=== PATIENT | male | born 1955 | race Caucasian/White ===

== ENCOUNTER 2019-03-01 08:59 | Inpatient (IN) | payer MEDICAID, OTHER ==
[2019-03-01] VITALS (44 sets, daily range): BP systolic 62–150; BP diastolic 30–96
[~2019-03-01] VITALS: Ht 175.3 cm; Wt 99.5 kg
[2019-03-01 09:36] LABS: BE(vivo) -6.4 mmol/L (-2 to +3); HCO3 21.7 mmol/L (22.0-26.0); PCO2 54.6 mmHg (35.0-45.0); PO2 68.8 mmHg (80.0-100.0); pH 7.217 (7.360-7.450); sO2 89.9 % (92.0-98.0)
[2019-03-01] MEDS ORDERED: PEPCID20 MG PER TUBE (09:43)
[2019-03-01] MEDS ORDERED: CHILDREN'S80 MG/2.5 PER TUBE (09:47)
[2019-03-01] MEDS ORDERED: MILK OF MA2400 MG/11 PO (09:49)
[2019-03-01] MEDS ORDERED: ROBITUSSIN100 MG/53 PER TUBE (09:50)
[2019-03-01] MEDS ORDERED: BACLOFEN 10MG T10 MG PER TUBE (09:50)
[2019-03-01 11:26] LABS: HEMATOCRIT 34.4 % (42.0-52.0); HEMOGLOBIN 10.3 gm/dL (14.0-18.0); MCH 24.9 pg (26.0-34.0); MCV 83.1 fL (80.0-100.0); PLATELET COUNT 180 thou/uL (150-400); RBC 4.14 mil/uL (4.50-6.00); RDW 16.9 % (10.5-14.5)
[2019-03-01 11:30] LABS: CALCIUM 8.9 mg/dL (8.5-10.1); CREATININE 2.8 mg/dL (0.7-1.3); POTASSIUM 5.9 mmol/L (3.5-5.1); WBC 51.6 thou/uL (4.0-11.0)
[2019-03-01 11:31] LABS: URINE BILIRUBIN NEGATIVE (Negative); URINE BLOOD 3+ (Negative); URINE CLARITY HAZY; URINE COLOR YELLOW; URINE GLUCOSE-RANDOM* NEGATIVE (Negative); URINE KETONES NEGATIVE (Negative); URINE LEUKOCYTES-REFLEX 3+ (Negative); URINE NITRITE-REFLEX NEGATIVE (Negative); URINE PROTEIN (DIPSTICK) 3+ (Negative); URINE UROBILINOGEN 0.2 E.U./dl (0.2-1.0)
[2019-03-01 11:35] LABS: APTT 43.4 Seconds (24.5-32.8); INR 1.3
[2019-03-01 11:41] LABS: BACTERIA-REFLEX None Seen /HPF (None Seen); CASTS None Seen /LPF (None Seen); CRYSTALS None Seen /LPF (None Seen); SQUAMOUS None Seen /LPF (0-3); TRANSITIONAL EPITHEL CELL 0-3 Few /LPF (None Seen); URINE WBC-REFLEX 6-15 Few /HPF (0-5)
[2019-03-01 11:41] LABS: ALBUMIN 1.9 g/dL (3.4-5.0); MAGNESIUM 2.7 mg/dL (1.8-2.4); TOTAL BILIRUBIN 0.5 mg/dL (<0.1-1.0); TROPONIN-I 0.15 ng/mL (<0.06)
[2019-03-01 11:59] LABS: ABSOLUTE NEUTROPHILS 44.4 thou/uL (1.4-8.2); ATYPICAL LYMPHS 4 %; METAMYELOCYTES 3 %; MYELOCYTES 1 %
[2019-03-01 12:00] LABS: ANISOCYTOSIS 1+; LARGE PLATELETS SEVERAL; TOXIC GRANULATION 1+
[2019-03-01 12:01] LABS: MICROCYTES 1+; POLYCHROMASIA 1+
--- NOTE | 2019-03-01 12:11 | NUR ---
FIRST REPORT CALLED AT THIS TIME; WAS TOLD THAT RN HAD NOT YET BEEN INFORMED THEY WERE RECEIVING A PT AND THAT RN WOULD CALL BACK IN 5 MINS
--- NOTE | 2019-03-01 12:25 | NUR ---
ATTEMPTED TO CALL PT'S , NO RESPONSE. [employer] NOT ACCEPTING MESSAGES AT THIS TIME.
[2019-03-01 14:33] LABS: HEMATOCRIT 32.5 % (42.0-52.0); MCH 25.5 pg (26.0-34.0); MCHC 30.7 g/dL (28.0-37.0); MCV 83.1 fL (80.0-100.0); RBC 3.92 mil/uL (4.50-6.00); RDW 17.3 % (10.5-14.5)
[2019-03-01 14:39] LABS: WBC 60.9 thou/uL (4.0-11.0)
--- NOTE | 2019-03-01 16:30 | NUR ---
PATIENT ARRIVED IN ICU FROM E.D THIS AFTERNOON, ON THE VENT PER TRACH, NON VERBAL AND NON AMBULATORY. HYPOTENSIVE AND ON LEVO GTT, FEBRILE AND LOW URINE OUTPUT NOTED. PEG TUBE AND COLOSTOMY WITH LIQUID STOOL NOTED AND SAMPLE SENT TO LAB FOR C-DIFF TESTING. CONTINUES TO BE HYPOTENSIVE AND NOW IS ON LEVO, VASO, AND ARCHIE GTTs FOR BP SUPPORT. DR. LAL IN TO SEE PATIENT AND IS MANAGING ANTIBIOTICS. NO BELONGINS WITH PATIENT AND PATIENT'S SPOUSE UPDATED ONTHE PHONE. WILL CONTINUE TO MONITOR CLOSELY.
[2019-03-01 17:51] LABS: BE(vivo) -7.5 mmol/L (-2 to +3); HCO3 21.1 mmol/L (22.0-26.0); PCO2 57.3 mmHg (35.0-45.0); PO2 80.8 mmHg (80.0-100.0); sO2 92.8 % (92.0-98.0)
[2019-03-01 17:52] LABS: pH 7.184 (7.360-7.450)
[2019-03-01 18:00] LABS: CREATININE 2.9 mg/dL (0.7-1.3)
[2019-03-01 18:05] LABS: POTASSIUM 6.3 mmol/L (3.5-5.1)
[2019-03-01 20:31] LABS: BE(vivo) -7.2 mmol/L (-2 to +3); HCO3 22.5 mmol/L (22.0-26.0); PCO2 66.4 mmHg (35.0-45.0); pH 7.147 (7.360-7.450); sO2 48.4 % (92.0-98.0)
--- NOTE | 2019-03-01 20:34 | NUR ---
[id number] JACC PLACED LT IJ. PLEASE SEE INSERTION NOTE FOR DETAILS
[2019-03-01 20:52] LABS: BE(vivo) -7.2 mmol/L (-2 to +3); HCO3 21.1 mmol/L (22.0-26.0); PCO2 55.6 mmHg (35.0-45.0); PO2 82.8 mmHg (80.0-100.0); sO2 93.5 % (92.0-98.0)
[2019-03-01 20:53] LABS: pH 7.197 (7.360-7.450)
[2019-03-01 22:33] LABS: CALCIUM 7.5 mg/dL (8.5-10.1); CREATININE 2.8 mg/dL (0.7-1.3)
[2019-03-01 22:36] LABS: POTASSIUM 5.8 mmol/L (3.5-5.1)
[2019-03-02] VITALS (87 sets, daily range): BP systolic 80–129; BP diastolic 44–111
[2019-03-02 00:06] LABS: BE(vivo) -5.7 mmol/L (-2 to +3); HCO3 21.3 mmol/L (22.0-26.0); PCO2 47.7 mmHg (35.0-45.0); PO2 85.1 mmHg (80.0-100.0)
[2019-03-02 00:07] LABS: pH 7.267 (7.360-7.450)
[2019-03-02 05:17] LABS: HEMOGLOBIN 10.9 gm/dL (14.0-18.0); MCH 25.3 pg (26.0-34.0); MCV 81.5 fL (80.0-100.0); PLATELET COUNT 188 thou/uL (150-400); RDW 17.2 % (10.5-14.5)
[2019-03-02 05:28] LABS: WBC 81.1 thou/uL (4.0-11.0)
[2019-03-02 05:31] LABS: ALBUMIN 1.8 g/dL (3.4-5.0); CALCIUM 7.5 mg/dL (8.5-10.1); CREATININE 2.8 mg/dL (0.7-1.3); TOTAL BILIRUBIN 0.8 mg/dL (<0.1-1.0); TOTAL PROTEIN 6.4 g/dL (6.4-8.2)
[2019-03-02 05:34] LABS: POTASSIUM 5.5 mmol/L (3.5-5.1)
[2019-03-02 05:35] LABS: BE(vivo) -4.2 mmol/L (-2 to +3); HCO3 22.6 mmol/L (22.0-26.0); PCO2 48.6 mmHg (35.0-45.0); PO2 96.6 mmHg (80.0-100.0); sO2 96.5 % (92.0-98.0)
[2019-03-02 05:37] LABS: pH 7.286 (7.360-7.450)
[2019-03-02 06:39] LABS: ABSOLUTE NEUTROPHILS 74.6 thou/uL (1.4-8.2)
[2019-03-02 06:42] LABS: PLATELET ESTIMATE NORMAL
[2019-03-02 06:43] LABS: ANISOCYTOSIS 1+; POIKILOCYTOSIS 1+; POLYCHROMASIA 1+
--- NOTE | 2019-03-02 07:51 | EKG ---
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 : 1955 Requested By: Luis Holden Order Number: [id number] MD: Kd Portillo Measurements Intervals [place] Rate: 106 P: 55 PA: 174 QRS: 12 QRSD: 98 T: 51 QT: 307 QTc: 408 Interpretive Statements Sinus tachycardia RSR' in V1 or V2, right VCD or RVH Borderline ST elevation, lateral leads No previous ECG available for comparison Electronically Signed On 03-02-2019 7:51:32 CDT by Kd Portillo [email or web address] ��������������������������������������������� <ELECTRONICALLY SIGNED> ���������������������������������������� By: Kd Portillo MD ��������������������������������������������� 03/02/19 0751 1 1 Kd Portillo MD /ARIELA
--- NOTE | 2019-03-02 10:27 | NUR ---
WOUND CONSULT; INITAL ASSESSMENT OF THE RIGHT BUTTOCKS AND SACRUM; ERYTHEMA, SMALL AMOUT OF SEROSANGINOUS DRAINAGE. FRICTION IS LIKLY VS PRESSURE LINEAR WOUNDS ARE SEEN. SOME FECAL CONTAMINATION IS SEEN. RECOMMEDATIONS; 1-BARRIER CREAM AND A SACRAL FOAM DAILY/PRN RN PRESENT
--- NOTE | 2019-03-02 10:34 | H ---
[facility] [place] [address] HISTORY AND PHYSICAL Name: MERVIN MADDOX Room #: 236-P [facility] IN M.R.#: [id number] Admission: 03/01/19 ������������������ Attend Phys: Mervin Bee MD Discharge: ������������������ Date of : 57 Report #: [id number] THIS REPORT FOR: //name// CC: Joesph Bee DATE OF SERVICE: 03/01/2019 CHIEF COMPLAINT: Low oxygen saturation. HISTORY OF PRESENT ILLNESS: The patient is a 63-year-old gentleman from [facility], sent to the Emergency Room with low oxygen saturations and report of fever. He has a history of quadriplegia from an unknown injury or illness in the past, and as a result, he has chronic respiratory failure, which is tracheostomy and ventilator dependent. He lives at the ventilator unit, and today, the staff noted that he had low oxygen saturations in the 70s. He was sent en route via EMS, and during that time, his colostomy bag apparently filled with liquid and ruptured and had to be reapplied, apparently has been having a lot of gas and liquid brown output through the colostomy. Today, he has been worked up and diagnosed for sepsis in the Emergency Room. He is unable to provide any details of his history. PAST MEDICAL HISTORY: As mentioned, quadriplegia, chronic respiratory failure, ventilator and tracheostomy dependent, PEG tube, Philippe catheter, colostomy. He has contractures of the arms and hands. PAST SURGICAL HISTORY: Unknown. FAMILY HISTORY: Unknown. SOCIAL HISTORY: Unknown. ALLERGIES: No known drug allergies. MEDICATIONS: Pepcid, Tylenol, baclofen, Robitussin. REVIEW OF SYSTEMS: He is unable to give review. OBJECTIVE: VITAL SIGNS: Temperature 37.6, pulse 110, respirations 29, blood pressure 62/34, ranging up to 150/96. O2 sat 95% on the ventilator. GENERAL: He is not alert. Clinically, appears ill. HEAD AND NECK:. Trach in place. Dry oral secretions, mucus discharge from his left eye. HEART: Tachycardic, regular rhythm. LUNGS: Clear anteriorly. [facility] [address] [place] [address] HISTORY AND PHYSICAL Name: MERVIN MADDOX Room #: 236-P [facility] IN ..#: [id number] Admission: 03/01/19 ������������������ Attend Phys: Mervin Bee MD Discharge: ������������������ Date of : 57 Report #: [id number] ABDOMEN: Soft. Hyperactive bowel sounds, colostomy in the mid abdomen with copious brown liquid output. EXTREMITIES: No edema. NEUROLOGIC: He is not alert or communicative and has contractures of the arms. LABORATORY AND X-RAY DATA: Reviewed. ASSESSMENT: 1. Sepsis, severe. 2. Acute on chronic hypoxic hypercapnic respiratory failure. 3. Lactic acidosis due to #1. 4. Chronic ventilator dependence. 5. Tracheostomy dependence. 6. Colostomy in place. 7. Anemia of chronic disease. 8. Acute kidney injury due to the above. 9. Transaminitis. 10. Severe protein-calorie malnutrition, albumin 1.9. PLAN: Full workup and treatment for sepsis will be entertained as symptoms causing his metabolic issues. Certainly, urinary, pulmonary or GI source to consider, but elevated white count would be concerning for an abdominal source including C. diff. I do not know the history of his prior bowel surgery, but this is being reported as a colostomy. He may need empiric treatment there until we have more information. ID and Pulmonary will be involved, and I understand from ER that full code status will be continued. ��������������������������������������������� <ELECTRONICALLY SIGNED> ���������������������������������������� By: Mervin Bee MD ��������������������������������������������� 03/02/19 1034 1304 1319 Mervin Bee MD /nt
--- NOTE | 2019-03-02 12:02 | HC ---
[facility] [place] [address] CONSULTATION Name: OLGAEVIEREBECCA Hercules Room #: 236-P [facility] IN M.R.#: [id number] Admission: 03/01/19 ������������������ Attend Phys: Rebecca Bee MD Discharge: ������������������ Date of : 57 Report #: [id number] THIS REPORT FOR: //name// CC: Joesph Bee PRIMARY CARE PHYSICIAN: Rebecca Bee M.D. REASON FOR REFERRAL: Acute hypoxic respiratory failure. HISTORY OF PRESENT ILLNESS: The patient is a 63-year-old white male who was brought to the Emergency Room for hypoxia. A Pulmonary consultation was requested. The patient is from a chronic facility at [facility]. According to the records, he has a history of multiple scleroses with functional quadriplegia. The patient is chronically on a ventilator. The patient was in his usual state of health until today. The patient was found to be hypoxic. In the ER, the patient's vital signs were stable except for hypoxia. He was placed on high FiO2. He was found to be hypoxic few hours into presentation in the Emergency Room. He is currently on vasopressors, volume resuscitation. History is limited given the patient is quite ill and he does not verbalize. The patient has a who desires aggressive medical intervention. PAST MEDICAL HISTORY: Incomplete. There is a questionable long history of multiple scleroses, resulting in functional quadriplegia, chronic respiratory failure, on ventilator, tracheostomy, PEG tube, colostomy. PAST SURGICAL HISTORY: Again, incomplete. ALLERGIES: Unknown. CURRENT MEDICATIONS: From the facility include Pepcid, milk of magnesia, baclofen, Robitussin. FAMILY HISTORY: Unknown. SOCIAL HISTORY: Unknown other than patient has a who desires a full code blue. REVIEW OF SYSTEMS: Deferred as the patient is quite ill and unable to answer questions. PHYSICAL EXAMINATION: [facility] [address] [place] [address] CONSULTATION Name: OLGAEVIEREBECCA Hercules Room #: 236-P [facility] IN [facility]#: [id number] Admission: 03/01/19 ������������������ Attend Phys: Rebecca Bee MD Discharge: ������������������ Date of : 57 Report #: [id number] GENERAL: He is arousable, but not coherent, appears semi-obtunded. VITAL SIGNS: Temperature maximum 100.8 degrees Fahrenheit, pulse is 107, respiratory rate is 30, blood pressure is 80/35 mmHg and saturation 98%. Blood pressure had been on admission 192/142 and blood pressure has been as low as 45 mmHg systolic. HEENT: Normocephalic and atraumatic. NECK: Status post tracheostomy. CHEST: Breath sounds are fair. Coarse breath sounds in the bases. No obvious wheezes. CARDIOVASCULAR: No obvious murmurs or gallop. Pulses are 2+/4+ bilaterally. ABDOMEN: Soft. No masses felt. Colostomy is noted in the left quadrant. GENITOURINARY: Deferred. RECTAL: Deferred. EXTREMITIES: No cyanosis or clubbing. NEUROLOGICAL: The patient has contractures with muscle atrophy. RADIOLOGICAL DATA: Portable chest x-ray shows small lung volumes, elevated right hemidiaphragm to the mid hemithorax area, there is a probable left lower lobe atelectasis. Tracheostomy is in the midline in appropriate position. EKG shows sinus tachycardia with borderline ST elevation. Doppler ultrasound of the lower extremity venous was negative for DVT. The study was technically difficult. LABORATORY DATA: Influenza A and B swab is negative. Lactic acid level is 4.1. Lipase was 66. Sodium 131, potassium 5.9, chloride 97, CO2 25, BUN 62 and creatinine is 2.8. Liver enzymes are markedly elevated. WBC 51,600 with severe bandemia. Hemoglobin is 10.3 and platelets are normal. Arterial blood gas revealed pH 7.21, pCO2 of 54 and pO2 of 68 on FiO2 of 50%. IMPRESSION: 1. Acute hypercapnic hypoxic respiratory failure in this 63-year-old white male. He has functional quadriplegia due to presumed multiple scleroses. Chest x-ray grossly unremarkable. He has profound leukocytosis with bandemia. Has low grade fever. Suspect severe sepsis as a cause for hypoxia, possible pneumonia. Pulmonary embolus is felt to be less likely though cannot absolutely rule out. 2. Profound hypotension. Suspect sepsis, septic shock. As mentioned above, pulmonary embolus is felt to be less likely. Neurogenic dysfunction is likely contributing. 3. Functional quadriplegia, history is incomplete. There is a history to suggest multiple scleroses versus possible injury. 4. Profound leukocytosis, leukemoid along with probable infectious process. Source includes pulmonary, intra-abdominal including Clostridium difficile colitis. 5. Elevated liver enzymes, due to shock liver. 6. Elevated creatinine, suspect acute tubular necrosis, acute kidney injury, [address] [address] CONSULTATION Name: REBECCA MADDOX Room #: 236-P ADM IN M.R.#: [id number] Admission: 03/01/19 ������������������ Attend Phys: Rebecca Bee MD Discharge: ������������������ Date of : 57 Report #: [id number] question chronic kidney disease. 7. Hypokalemia, hyponatremia. 8. Profound protein-calorie malnutrition with albumin of 1.9. RECOMMENDATIONS: We will continue mechanical ventilation, wean O2 for saturation 90%, DVT prophylaxis, sepsis protocol with vasopressors, IV fluids, broad-spectrum antibiotics. Antibiotics per ID. Monitor urine output closely. Monitor hyperkalemia. Overall look appears to be poor given severe comorbid condition including progressive debility and weakness leading to functional quadriplegia. DVT and GI prophylaxis is indicated. Thank you for this consultation. ��������������������������������������������� <ELECTRONICALLY SIGNED> ���������������������������������������� By: Robert Horne MD ��������������������������������������������� 03/02/19 1202 1656 0426 Robert Horne MD /nt
--- NOTE | 2019-03-02 15:10 | 2DMMODE ---
[facility] [address] [place] [address] 2 D/M-MODE ECHOCARDIOGRAM Name: REBECCA MADDOX Room #: 236-P [facility] IN ..#: [id number] ������������� Admission: 03/01/19 ������������� Attend Phys: Andrew Powell Discharge: ��� ������������� ��� Date of : 57 Date of Service: 03/02/19 1509 �� Report #: [id number] �������� ��������������������������������������������[id number] THIS REPORT FOR: //name// APPROVED REPORT Study performed: 03/02/2019 14:19:50 EXAM: Comprehensive 2D, Doppler, and color-flow Echocardiogram Patient Location: Bedside Room #: [facility] Status: routine BSA: 2.17 HR: 115 bpm BP: 105/55 mmHg Rhythm: Tachycardia Other Information Study Quality: Adequate Technically limited study due to inability to position patient. Indications Septic Shock Respiratory Failure Pt. on ventilator 2D Dimensions IVSd: 11.87 (7-11mm) LVOT Diam: 20.00 (18-24mm) LVDd: 44.61 mm PWd: 12.20 (7-11mm) Ascending Ao: 33.92 (22-36mm) LVDs: 32.24 (25-40mm) Aortic Root: 33.07 mm LV Single Plane 4CH: 45.13 % LV Single Plane 2CH: 44.95 % Aortic Valve AoV Peak Adan.: 1.45 m/s AO Peak Gr.: 8.36 mmHg LVOT Max P.06 mmHg LVOT Max V: 0.87 m/s JULITA Vmax: 1.88 cm2 Pulmonary Valve PV Peak Adan.: 1.28 m/s PV Peak Gr.: 6.51 mmHg Left Ventricle [facility] [address] [place] [address] 2 D/M-MODE ECHOCARDIOGRAM Name: REBECCA MADDOX Room #: 236-P ADM IN .R.#: [id number] ������������� Admission: 03/01/19 ������������� Attend Phys: Andrew Powell Discharge: ��� ������������� ��� Date of : 57 Date of Service: 03/02/19 1509 �� Report #: [id number] �������� ��������������������������������������������[id number] The left ventricle is normal size. There is normal LV segmental wall motion. Mild concentric left ventricular hypertrophy. Left ventricular systolic function is normal. The left ventricular ejection fraction is within the normal range. LVEF is 50%. This study is not technically sufficient to allow evaluation of the LV diastolic function. Right Ventricle The right ventricle is normal size. The right ventricular systolic function is normal. Atria The left atrium size is normal. The right atrium size is normal. Aortic Valve The aortic valve is mildly calcified. No aortic regurgitation is present. There is no aortic valvular stenosis. Mitral Valve The mitral valve is normal in structure. There is no mitral valve regurgitation noted. No evidence of mitral valve stenosis. Tricuspid Valve The tricuspid valve is normal in structure. Trace tricuspid regurgitation. Unable to assess PA pressure. Pulmonic Valve The pulmonary valve is normal in structure. Trace pulmonic regurgitation. Great Vessels The aortic root is normal in size. IVC is not visualized. Pericardium There is no pericardial effusion. Pleural effusion is present. <Conclusion> Left ventricular systolic function is normal. There is normal LV segmental wall motion. LVEF is 50-55%. The aortic valve is mildly calcified. No aortic regurgitation or stenosis The mitral valve is normal in structure. No mitral valve [facility] [place] [address] 2 D/M-MODE ECHOCARDIOGRAM Name: REBECCA MADDOX Room #: 236-P [facility] IN ..#: [id number] ������������� Admission: 03/01/19 ������������� Attend Phys: Andrew Powell Discharge: ��� ������������� ��� Date of : 57 Date of Service: 03/02/19 1509 �� Report #: [id number] �������� ��������������������������������������������[id number] regurgitation. Pulmonary artery systolic pressure could not be reliably ascertained. There is no pericardial effusion. ��������������������������������������������� <ELECTRONICALLY SIGNED> ���������������������������������������� By: Salazar Roth MD, FACC ��������������������������������������������� 03/02/19 1509 150 150 Salazar Roth MD, FACC /INF
--- NOTE | 2019-03-02 15:38 | NUR ---
CM ASSESSMENT: CASE OPENED FOR DC PLANNING. CLINICAL INFO REVIEWED. PT ADMITS THRU ER FROM [facility] VENT [facility]. CRITICALLY ILL WITH HIGH O2 NEEDS ON VENT, REQUIRING PRESSURES FOR BP SUPPORT. SPOKE WITH SPOUSE SPENCER BY PHONE. PT WITH HX OF MS, LAST AT HOME ABOUT A YEAR AGO. WAS IN LTC AT [facility] WITH TRACH AND BREATHING ON OWN. HOSPITALIZATION AT [facility] AND LTAC STAY AT [facility] AND AT ONE TIME WAS ABLE TO BREATHE ON OWN IN DAY AND VENT AT NIGHT. ADMIT TO [facility] OCTOBER 2018 NOT [facility] ANYMORE. SPOSUE INDICATES WANTS PT TO REUTRN TO [facility] WHEN MEDICALLY STABLE. SPOUSE INDICATES DR. ACOSTA CALLED HER THIS AM TO DISCUSS CONDITION AND GOALS OF CARE. PT MADE DNR AFTER SPEAKING WITH DR. ACOSTA, BUT SPOUSE MAINTAINS WANTS AGGRESSIVE TREATMENT TO CONTINUE. SPOUSE INDICATES AT BASELINE PT ABLE IS ALERT AND ABLE TO MOUTH WORDS TO COMMUNICATE. DEPENDENT FOR ADLS.
[2019-03-02 17:25] LABS: CALCIUM 7.3 mg/dL (8.5-10.1); CREATININE 2.6 mg/dL (0.7-1.3)
[2019-03-02 17:26] LABS: POTASSIUM 4.4 mmol/L (3.5-5.1)
--- NOTE | 2019-03-02 18:31 | NUR ---
ASSUMED CARE THIS AM, PATIENT WITH EYES OPEN BUT DOES NOT RESPOND TO VERBAL STIMULUS. STATES THAT PATIENT IS NOT VERBAL BUT CAN MOUTH WORDS AND ANSWER YES/NO QUESTIONS EASILY. DOES NOT FOLLOW COMMANDS OR RESPOND TO YES/NO QUESTIONS. UNABLE TO ASSESS PAIN BUT DOES NOT APPEAR TO BE UNCOMFORTABLE. BLE WITH CYANOTIC TOES AND COOL TO TOUCH. ONLY ABLE TO DOPPLER THE L DORSAL PEDIS PULSE. PEG TUBE CLAMPED. COLOSTOMY WITH BROWN YELLOW LIQUID STOOL NOTED. ST ON MONITOR AND BLOOD PRESSURE SUPPORTED WITH LEVOPHED AND ARCHIE AND VASOPRESSIN. FULL CODE. 0930: SPOKE WITH AND UPDATED ON STATUS. 1330: ATTACHED PEG TUBE TO LIS AND 500 CC OF YELLOW/BROWN LIQUID NOTED. WILL CONTINUE ON INTERMITTENT SUCTION. DR. SCHMITZ NOTIFIED. 1523: TEMP 102.5 DR. SCHMITZ NOTIFIED AND ORDER FOR TYLENOL SUPP RECIEVED. 1730: EKG ORDERED AND AFIB ON MONITOR AT RATE OF 145. DR. MARCELO NOTIFIED AND CARDIOLOGY CONSULTED. 1830: SPOKE WITH DR. RICHARDSON AND NEW ORDERS RECIEVED FOR AMIODARONE AND CARDIZEM.
[2019-03-03] VITALS (80 sets, daily range): BP systolic 62–127; BP diastolic 34–92
--- NOTE | 2019-03-03 00:38 | NUR ---
ASSUMED CARE OF PT AT 1900. PT STARTED ON AMIO BOLUS AND GTT BY AM RN FOR A FIB WITH RVR. PT CONVERTED TO SINUS AT 1912 SHORTLY AFTER AMIO BOLUS INFUSION STARTED. FAMILY UPDATED AT BEDSIDE AT 2229. QUESTIONS ANSWERED BY RN. STATED THAT PT HAS A PRIOR HX OF A FIB AND IS ON AMIODARONE FOR IT. AT 2258 PT CONVERTED BACK TO A FIB. DR RICHARDSON WAS CONTACTED AND UPDATED ON PT STATUS. ORDER CLARIFICATION REGARDING POSSIBLE CARDIZEM GTT WAS GIVEN BY DR RICHARDSON. ORDER FOR ANOTHER AMIODARONE BOLUS GIVEN. WILL CONTINUE TO MONITOR PT.
[2019-03-03 04:14] LABS: ALBUMIN 1.6 g/dL (3.4-5.0); CREATININE 2.3 mg/dL (0.7-1.3); PHOSPHORUS 5.7 mg/dL (2.5-4.9); POTASSIUM 3.6 mmol/L (3.5-5.1); TOTAL BILIRUBIN 0.7 mg/dL (<0.1-1.0); TOTAL PROTEIN 6.2 g/dL (6.4-8.2)
[2019-03-03 04:26] LABS: HEMATOCRIT 32.7 % (42.0-52.0); HEMOGLOBIN 10.5 gm/dL (14.0-18.0); MCH 25.6 pg (26.0-34.0); RBC 4.09 mil/uL (4.50-6.00)
[2019-03-03 04:29] LABS: WBC 57.5 thou/uL (4.0-11.0)
[2019-03-03 04:30] LABS: PLATELET COUNT 108 thou/uL (150-400)
[2019-03-03 06:23] LABS: ABSOLUTE NEUTROPHILS 54.6 thou/uL (1.4-8.2); ANISOCYTOSIS 1+; PLATELET ESTIMATE DECREASED; POIKILOCYTOSIS 1+; POLYCHROMASIA 1+
--- NOTE | 2019-03-03 08:21 | EKG ---
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 : 1955 Requested By: Rebecca Bee Order Number: [id number] MD: Salazar Roth Measurements Intervals Craig Rate: 135 P: DE: QRS: 8 QRSD: 103 T: 39 QT: 298 QTc: 447 Interpretive Statements Atrial fibrillation RSR' in V1 or V2, right VCD Borderline ST elevation, anterior leads Compared to ECG 03/01/2019 09:22:04 Atrial fibrillation has replaced sinus tachycardia Electronically Signed On 03-03-2019 8:20:49 CDT by Salazar Roth [email or web address] ��������������������������������������������� <ELECTRONICALLY SIGNED> ���������������������������������������� By: Salazar Roth MD, [facility] ��������������������������������������������� 03/03/19 0820 1750 175 Salazar Roth MD, [facility] /EPI
[2019-03-03 12:08] LABS: BE(vivo) 1.7 mmol/L (-2 to +3); HCO3 27.1 mmol/L (22.0-26.0); PCO2 45.9 mmHg (35.0-45.0); PO2 103.6 mmHg (80.0-100.0); pH 7.389 (7.360-7.450); sO2 97.7 % (92.0-98.0)
--- NOTE | 2019-03-03 14:56 | NUR ---
on-going assessment:CM REVIEWED CHART. PT WAS IN A-FIB EARLY THIS AM AND CONVERTED. PT IS TO CONTINUE CARD AND ANTIBIOTICS AND AWAITING CT OF ABDOMEN BEFORE CONSIDERING TF ONCE STABLE. CM SPOKE WITH PATIENTS WIFES. SHE REQUESTED TO TALK WITH PHYSICIAN STATING SHE THOUGHT HE WAS SUPPOSED TO CALL HER TODAY BUT HAD NOT HEARD FROM HIM. CM REACHED OUT TO DR. ACOSTA AND RELAYED THE MESSAGE. NO PLANS FOR WEEKEND DISCHARGE. CM UPDATED PROMISE LIASON.
--- NOTE | 2019-03-03 16:22 | NUR ---
PATIENT ASSESSMENTS AND VITAL SIGNS DOCUMENTED. PATIENTS SPOUSE UPDATED ON PLAN OF CARE, PATIENT CONDITION, AND TREATMENTS. SEE DRIP TITRATIONS FOR WEANING OF MEDICATIONS. PATIENT REPOSITIONED DOCUMENTED. NO WEANING TRIALS TODAY. PER DR. ACOSTA, PATIENT TO HAVE CT SCAN ONCE MORE STABLE AND NOT ON MANY CARDIAC GTTS. HOLD ON TUBE FEEDING FOR NOW UNTIL ABLE TO GET CT SCAN. PLAN OF CARE IS TO CONTINUE TO MONITOR PATIENT STATUS, ASSESSMENTS, VITAL SIGNS, AND TITRATE GTTS.
--- NOTE | 2019-03-03 17:37 | HC ---
[facility] [place] [address] [place] [address] CONSULTATION Name: REBECCA MADDOX Room #: 236-P [facility] IN .R.#: [id number] Admission: 03/01/19 ������������������ Attend Phys: Rebecca Bee MD Discharge: ������������������ Date of : 57 Report #: [id number] THIS REPORT FOR: //name// CC: Joesph Bee DATE OF SERVICE: 03/01/2019 TYPE OF REPORT: Infectious diseases consultation. REASON FOR CONSULTATION: I was asked to evaluate concerning septic shock. HISTORY OF PRESENT ILLNESS: A 63-year-old transferred from [facility] Ventilatory [facility]. He has underlying MS and quadriplegia with respiratory failure and chronic ventilatory requirements via tracheostomy. Presents now with fever, liquid stools and hypoxia. The patient was unable to give any further details. Discussed the case with nursing staff in attendance and reviewed medical records. On presentation to the Emergency Room, he was hypotensive. He has had over 4 liters of normal saline and now was on Levophed drip. He remains encephalopathic. Oxygen requirements are elevated, now on 80% FiO2. Minimal tracheal secretions identified. He has no significant decubitus. There has been no vomiting. He has a large volume of liquid stool from his colostomy. He had a previous history of pressure wounds now resulting in a chronic indwelling Philippe catheter and a diverting colostomy. There is no other report of cardiopulmonary issues. No aspiration reported. REVIEW OF SYSTEMS: A 10-point review of systems as noted above with no further additions. PAST MEDICAL HISTORY: Quadriplegia from MS, chronic respiratory failure, PEG tube placement, Philippe catheter and colostomy. He has contractures of his arms and his legs. Further past medical history is not available. FAMILY HISTORY: Noncontributory as he is a retirement resident. SOCIAL HISTORY: Noncontributory as he is a retirement resident. ALLERGIES: TAPE. MEDICATIONS: As noted on his MAR including Pepcid, Tylenol, baclofen and Robitussin and now on vancomycin and Zosyn. PHYSICAL EXAMINATION: VITAL SIGNS: Temperature is 99.6, pulse 111, respiratory rate 30 and blood pressure 73/34. GENERAL: Left IJ catheter without erythema or drainage, on pressors. An 80% [facility] [address] [place] [address] CONSULTATION Name: REBECCA MADDOX Delisa Room #: 236-P [facility] IN M.R.#: [id number] Admission: 03/01/19 ������������������ Attend Phys: Rebecca Bee MD Discharge: ������������������ Date of : 57 Report #: [id number] FiO2 via his tracheostomy. No decubiti or rash noted. No palpable adenopathy. HEENT: Eyes, without scleral icterus. Mouth without mucositis. NECK: Increased muscle tone throughout. No appreciable masses or thyromegaly. No drainage from the tracheostomy. LUNGS: Coarse posteriorly. HEART: Regular, without murmur, gallop or rub. He was tachycardic. ABDOMEN: Distended. He had a PEG tube without drainage and a colostomy with liquid stool. The mucosa from the colostomy appeared normal. GENITOURINARY: Indwelling Philippe catheter with some bleeding from his meatus. Minimal urine output. EXTREMITIES: No cyanosis, clubbing or edema. He was contractured upper and lower extremities. NEUROLOGICAL: The patient was encephalopathic. LABORATORY STUDIES: Hemoglobin 10; WBC 60,000 with 26% bands and platelet count 180,000. BNP 6695. Lactate 5.6. Sodium 131, potassium 5.9, bicarbonate 23 and creatinine 2.8. AST 1491, ALT 442, alkaline phosphatase 122, bilirubin 0.5 and albumin of 1.9. Urinalysis, few wbc's, moderate rbc's and no bacteria seen. ABGs on 50% FiO2 showed a pO2 of 68, pCO2 of 54 and pH 7.2. RADIOLOGICAL DATA: Chest x-ray with bilateral basilar infiltrates. IMPRESSION: A 63-year-old with advanced multiple scleroses, quadriplegic, contractured with chronic respiratory failure, now with septic shock and leukemoid reaction. We would be concerned about intra-abdominal infection including Clostridium difficile colitis. Pneumonia or pancreatitis, possibly. He has evidence of hepatitis, likely shock liver, developing. RECOMMENDATIONS: We will continue with broad-antibiotic coverage with vancomycin and Zosyn. Add enteral vancomycin. Check blood cultures, sputum culture, urine culture, stool for C. diff. Serial CBCs. Further imaging studies to include CT scan of the chest and abdomen. We will adjust his antibiotics for his renal failure. Serial liver function test. Full ICU support and I have discussed with nursing staff at the bedside. We will be on sepsis protocol. [place] here is guarded given his significant comorbidities. ��������������������������������������������� <ELECTRONICALLY SIGNED> ���������������������������������������� By: Luis Holguin MD ��������������������������������������������� 03/03/19 1737 [id number] [id number] Luis Holguin MD /nt
[2019-03-03 18:46] LABS: CREATININE 1.8 mg/dL (0.7-1.3)
[2019-03-03 19:30] LABS: POTASSIUM 2.9 mmol/L (3.5-5.1)
[2019-03-04] VITALS (65 sets, daily range): BP systolic 91–112; BP diastolic 49–66
--- NOTE | 2019-03-04 02:49 | NUR ---
ASSUMED CARE OF PT AT 1900. PT HAS BEEN DROWSY THROUGHOUT THE NIGHT. PT ABLE TO WAKE UP AND TRACK. PT NODS APPROPRIATELLY TO QUESTIONS. SR WITH INTERMITTENT PERIODS OF A FIB. LEVOPHED GTT TITRATED DOWN TO KEEP MAP GOAL. PT REMAINS ON AMIO AND CARDIZEM GTT FOR RATE CONTROL. PT TAKEN TO CT AT 0020. RESULTS PENDING WILL CONTINUE TO MONITOR PT.
[2019-03-04 04:34] LABS: HEMOGLOBIN 10.4 gm/dL (14.0-18.0); MCHC 31.4 g/dL (28.0-37.0); MCV 79.4 fL (80.0-100.0); RBC 4.16 mil/uL (4.50-6.00); RDW 17.3 % (10.5-14.5)
[2019-03-04 04:43] LABS: WBC 60.3 thou/uL (4.0-11.0)
[2019-03-04 04:45] LABS: ALBUMIN 1.7 g/dL (3.4-5.0); CALCIUM 7.8 mg/dL (8.5-10.1); CREATININE 1.5 mg/dL (0.7-1.3)
[2019-03-04 04:54] LABS: BE(vivo) 6.3 mmol/L (-2 to +3); HCO3 31.6 mmol/L (22.0-26.0); PCO2 48.6 mmHg (35.0-45.0); PO2 128.9 mmHg (80.0-100.0); pH 7.431 (7.360-7.450); sO2 98.6 % (92.0-98.0)
[2019-03-04 11:08] LABS: APTT 30.1 Seconds (24.5-32.8); FIBRINOGEN 504.4 mg/dL (210-360); PROTIME 10.8 Seconds (9.3-11.4)
--- NOTE | 2019-03-04 19:47 | NUR ---
Assumed care of patient at 0700. Patient is awake through the day, will respond appropriately with nods/shakes. Denies pain or shortness of breath. Does become flushed appearing and hot intermittently, no fever. Weaning down on pressors as BP allows, weaning off cardizem gtt for rate control, HR currently 70s-80s, aflutter. PEG tube remains to LIS, no nutrition orders today, will check with renal tomorrow if TPN is needed. Family at bedside, updated. Continue to monitor.
[2019-03-05] VITALS (95 sets, daily range): BP systolic 61–119; BP diastolic 33–73
[2019-03-05 05:11] LABS: ALBUMIN 1.7 g/dL (3.4-5.0); CALCIUM 8.3 mg/dL (8.5-10.1); PHOSPHORUS 2.4 mg/dL (2.5-4.9); TOTAL PROTEIN 5.9 g/dL (6.4-8.2)
[2019-03-05 05:13] LABS: BE(vivo) 6.5 mmol/L (-2 to +3); HCO3 31.1 mmol/L (22.0-26.0); PO2 130.7 mmHg (80.0-100.0); pH 7.458 (7.360-7.450); sO2 98.7 % (92.0-98.0)
[2019-03-05 05:16] LABS: POTASSIUM 2.9 mmol/L (3.5-5.1)
[2019-03-05 06:10] LABS: MCH 25.1 pg (26.0-34.0); MCHC 31.3 g/dL (28.0-37.0); MCV 80.3 fL (80.0-100.0); PLATELET COUNT 61 thou/uL (150-400); RBC 3.98 mil/uL (4.50-6.00); RDW 17.3 % (10.5-14.5)
[2019-03-05 07:23] LABS: ABSOLUTE NEUTROPHILS 33.3 thou/uL (1.4-8.2)
[2019-03-05 07:24] LABS: ANISOCYTOSIS 1+; LARGE PLATELETS SEVERAL
--- NOTE | 2019-03-05 07:47 | NUR ---
ASSUMED CARE OF PT AT 1900. PT AWAKE ABLE TO NOD AND MOUTH YES/NO TO QUESTIONS. PT DENIES PAIN. A FLUTTER ON THE MONITOR. PT OFF CARDIZEM SINCE 2199 TOLERATING WELL WITH RATE CONTROL. ABLE TO TITRATE LEVOPHED GTT WHILE MAINTAINING MAP PARAMETERS. PT MAKING PROGRESS TOWARDS GOALS.
--- NOTE | 2019-03-05 19:45 | NUR ---
Pt awake and very alert most of the day. Pt would close his eyes and rest for only brief period. Maintenance attached mouth activated call light. Pt was able to trigger the call light with his mouth. Pt seemed to have trouble with concept of when to use the light and wanted to blow on it repetatively while nurse standing at the bedside. Atrial flutter with increased rate. Cardizem gtt ordered from Pharmacy by oncoming RN and will be restarted. Levophed was weaned to 2 mcg/min. Report given to RN assuming care of the patient.
[2019-03-06] VITALS (39 sets, daily range): BP systolic 89–121; BP diastolic 48–70
[2019-03-06 05:14] LABS: BE(vivo) 8.3 mmol/L (-2 to +3); HCO3 31.8 mmol/L (22.0-26.0); PCO2 39.8 mmHg (35.0-45.0); PO2 151.4 mmHg (80.0-100.0); sO2 99.1 % (92.0-98.0)
[2019-03-06 05:28] LABS: ALBUMIN 1.8 g/dL (3.4-5.0); CALCIUM 8.7 mg/dL (8.5-10.1); CREATININE 0.9 mg/dL (0.7-1.3); PHOSPHORUS 2.1 mg/dL (2.5-4.9)
--- NOTE | 2019-03-06 06:00 | NUR ---
REMAINS TRACHED AND VENTED. AMIO GTT 0.5 MCG LEVOPHED 2 MCG AND CARDIZEM 5 MG PT AWAKE ALL NOCT LONG ALWAYS SMILING. 1600 CC UO SAND 150 CC BROWN LIQ STOOL FROM COLOSTOMY. BATHED REMAINS A DNR. WILL CONT TO MONITOR.
--- NOTE | 2019-03-06 09:35 | NUR ---
Nutrition: When IVFs can D/C, rec Increase water flushes to 250 mL q 6 hrs and add beneprotein powder in each water flush (total 4 packets/day) to better meet protein needs in ICU.
--- NOTE | 2019-03-06 14:36 | NUR ---
FOLLOWING FOR DC PLANNING. CLINICAL INFO REVIEWED. PER DR. ACOSTA NOTE, PLAN RETURN TO LTC AT [facility] WHEN PRESSORS WEANED OFF. UPDATED CLINICAL PROVIDED TO AMEE FROM [facility] THIS AFTERNOON.
--- NOTE | 2019-03-06 18:50 | NUR ---
Patient assessments and vital signs as documented. He has denied pain and nodded yes/no seemingly appropriately. He follows commands such as open mouth, blink eyes. He is contracted and unable to follow commands with his extremeties. Nurse was able to wean him off of cardizem, he is off amiodarone, and weaned off levophed. He was repositioned as documented. Oral care provided. His mouth is dry. Spouse updated today on patients plan of care and treatments. Nurse to continue to monitor patient status.
[2019-03-07] VITALS (16 sets, daily range): BP systolic 87–118; BP diastolic 45–66
[2019-03-07 06:16] LABS: ABSOLUTE NEUTROPHILS 13.4 thou/uL (1.4-8.2); BASOPHILS 0.3 % (0.0-2.0); EOSINOPHILS 0.1 % (0.0-3.0); HEMATOCRIT 30.3 % (42.0-52.0); HEMOGLOBIN 9.5 gm/dL (14.0-18.0); LYMPHOCYTES 1.8 % (24.0-44.0); MCH 25.4 pg (26.0-34.0); MCHC 31.3 g/dL (28.0-37.0); MCV 81.2 fL (80.0-100.0); MONOCYTES 5.8 % (1.0-8.0); PLATELET COUNT 88 thou/uL (150-400); RBC 3.74 mil/uL (4.50-6.00); RDW 17.2 % (10.5-14.5); WBC 14.6 thou/uL (4.0-11.0)
--- NOTE | 2019-03-07 06:17 | NUR ---
ASSUMED PATIENT CARE AT 1900. PATIENT LYING IN BED SMILING. NODS HEAD APPROPRIATELY AND WHISPERS TO ANSWER QUESTIONS. ROM PERFORMED. PATIENT IS OFF ALL CARDIAC DRIPS. UPDATED ON CARE PLAN. NO ACUTE EVENTS OCCURRED AND VSS. HOURLY ROUNDING COMPLETED. PATIENT PROGRESSING TOWARD GOAL.
[2019-03-07 06:38] LABS: ALBUMIN 1.8 g/dL (3.4-5.0); CALCIUM 8.7 mg/dL (8.5-10.1); CREATININE 0.8 mg/dL (0.7-1.3); DIRECT BILIRUBIN 0.3 mg/dL (<0.1-0.3); PHOSPHORUS 2.4 mg/dL (2.5-4.9); POTASSIUM 4.4 mmol/L (3.5-5.1); TOTAL BILIRUBIN 0.5 mg/dL (<0.1-1.0); TOTAL PROTEIN 5.5 g/dL (6.4-8.2)
--- NOTE | 2019-03-07 08:53 | HC ---
[facility] [place] [place] [address] CONSULTATION Name: REBECCA MADDOX Room #: 236-P [facility] IN .R.#: [id number] Admission: 03/01/19 ������������������ Attend Phys: Rebecca Bee MD Discharge: ������������������ Date of : 57 Report #: [id number] THIS REPORT FOR: //name// CC: Joesph Bee REASON FOR CONSULTATION: Atrial fibrillation HISTORY OF PRESENT ILLNESS: The patient is a 63-year-old gentleman with a history of multiple sclerosis with chronic respiratory failure with prior tracheostomy. He lives at the chronic ventilator unit at [facility]. He presented with severe hypotension and despite aggressive volume resuscitation has now required multiple pressors for blood pressure support including vasopressin and Levophed. In the setting of severe septic shock, he developed atrial fibrillation. I was asked to see him in this regard. His history comes from the medical record as he is currently unable to give any meaningful history. His atrial fibrillation was not hemodynamically compromising although atrial fibrillation rates were fast. He was started on intravenous amiodarone and he has had periods of sinus rhythm since then. No prior history of atrial fibrillation. There is no history of myocardial infarction or heart failure. Echocardiogram, which I have reviewed demonstrated an ejection fraction of 50-55%. Significant valvular heart disease was absent. PAST MEDICAL HISTORY: Medical records have been reviewed and include a history of multiple sclerosis resulting in functional quadriplegia, chronic respiratory failure, tracheostomy, PEG tube, prior colostomy. He has flexion contractures of both arms. SOCIAL HISTORY, FAMILY HISTORY AND REVIEW OF SYSTEMS: Not obtainable. PHYSICAL EXAMINATION: GENERAL: Reveals a poorly responsive gentleman who is ventilated. VITAL SIGNS: Blood pressure is 100/53, heart rate of 89 and irregular and temperature is 101.4 degrees axillary. HEENT: There are neither xanthelasma, subcutaneous xanthomata, oral mucosal or digital cyanosis or kyphoscoliosis present. CHEST: Reveals diminished breath sounds at both bases. CARDIOVASCULAR: Irregularly irregular rhythm with normal S1, S2. ABDOMEN: Soft. EXTREMITIES: Reveal 1+ pedal edema, peripheral cyanosis is present in both hands and feet, flexion contractures are evident of the upper extremities. LABORATORY DATA: Sodium 136, potassium 3.6 and creatinine 2.3, baseline is unknown. ALT 466. White count 57,000, hemoglobin 10, platelet count 108, 11% bands. Abdominal ultrasound demonstrates mild gallbladder wall thickening without cholelithiasis. Chest x-ray: Focal atelectasis in the left lung base. EKG: Sinus rhythm with right ventricular conduction delay. [address] [address] CONSULTATION Name: REBECCA MADDOX Delisa Room #: 236-P [facility] IN M.R.#: [id number] Admission: 03/01/19 ������������������ Attend Phys: Rebecca Bee MD Discharge: ������������������ Date of : 57 Report #: [id number] IMPRESSION: 1. Septic shock. 2. Atrial fibrillation, paroxysmal, with a rapid ventricular response. 3. Multiple sclerosis with functional quadriplegia. 4. Chronic respiratory failure, status post tracheostomy. 5. Acute kidney injury. 6. Peripheral cyanosis, multiple pressors. RECOMMENDATIONS: 1. Intravenous amiodarone, low-dose Cardizem if needed for added rate control. 2. Atrial fibrillation, rates may be very difficult to control in the setting of ongoing sepsis with high fevers, may need to tolerate higher than normal heart rates. 3. Supportive care in the setting of multisystem failure. Discussed with nursing staff. ��������������������������������������������� <ELECTRONICALLY SIGNED> ���������������������������������������� By: Salazar Roth MD, [facility] ��������������������������������������������� 03/07/19 0853 0712 0827 Salazar Roth MD, [facility] /nt
--- NOTE | 2019-03-07 10:24 | NUR ---
FOLLOWING FOR DC PLANNING. CLINICAL INFO REVIEWED AND DISCUSSED WITH JUANIS ACOSTA AND MARYCRUZ. PRESSORS WEANED OFF YESTERDAY MID DAY. PT ALERT AND ABLE TO COMMUNICATE BY NODDING AND MOUTHING WORDS. PT INFORMED STABLE FOR TRANSFER OUT OF ICU AND LIKELY BACK TO [facility] 2-3 DAYS, PER DR. ACOSTA. PT AGREEABLE. CALLED SPOUSE SPENCER AND UPDATED HER AND SHE VERBALIZED SHE AGREES WITH DC PLANS. AMEE FROM [facility] HERE AND UPDATED AND PROVIDED WITH UPDATED CLINICAL FOR [facility] RECORD. DC PLAN: RETURN TO LTC AT [facility] THUR OR FRI.
[2019-03-07 15:24] LABS: HEMATOCRIT 29.7 % (42.0-52.0); HEMOGLOBIN 9.4 gm/dL (14.0-18.0); MCH 25.8 pg (26.0-34.0); MCHC 31.5 g/dL (28.0-37.0); MCV 81.8 fL (80.0-100.0); RBC 3.63 mil/uL (4.50-6.00); RDW 17.3 % (10.5-14.5); WBC 16.6 thou/uL (4.0-11.0)
--- NOTE | 2019-03-07 17:57 | NUR ---
pt transferred from icu to room 361. Report received from galdino osorio. Pt chronic trach on vent. quadriplegic, able to nod to y/n questions. IVF running. TF per PEG. SCD;s applied. praffo boots in place.
--- NOTE | 2019-03-07 18:57 | NUR ---
PATIENT ASSESSMENTS AND VITAL SIGNS DOCUMENTED. HE DENIES PAIN, SHORTNESS OF AIR. REPORT WAS CALLED TO JULIO EPPERSON ON FOR CONTINUATION OF CARE. HE IS TOLERATING TUBE FEEDING. INTAKE AND OUTPUT DOCUMENTED. HE WAS TRANSFERED TO [facility] WITH RN, CREMATOR, AND RT. NURSE NOTIFIED PATIENTS SPOUSE IN REGARDS TO TRANSFER AND UPDATE ON PLAN OF CARE.
[2019-03-08 05:06] VITALS: BP 113/65
[2019-03-08 05:59] LABS: HEMATOCRIT 28.5 % (42.0-52.0); MCH 25.7 pg (26.0-34.0); MCHC 31.5 g/dL (28.0-37.0); MCV 81.6 fL (80.0-100.0); RBC 3.5 mil/uL (4.50-6.00); RDW 17.1 % (10.5-14.5); WBC 14.9 thou/uL (4.0-11.0)
[2019-03-08 06:19] LABS: ALBUMIN 1.7 g/dL (3.4-5.0); CALCIUM 8.2 mg/dL (8.5-10.1); CREATININE 0.6 mg/dL (0.7-1.3); PHOSPHORUS 2.9 mg/dL (2.5-4.9); POTASSIUM 4.1 mmol/L (3.5-5.1)
[2019-03-08 07:45] VITALS: BP 106/51
[2019-03-08 11:20] VITALS: BP 104/55
[2019-03-08 15:50] VITALS: BP 111/54
--- NOTE | 2019-03-08 15:54 | NUR ---
SW reviewed chart and spoke with nursing. Pt was transferred to from ICU and is progressing towards goals for discharge. Pt will d/c back to [facility] in 1-2 days. SW updated [facility] liaison. SW is following to assist as needed with discharge planning.
--- NOTE | 2019-03-08 18:25 | NUR ---
CONTINUE WITH Q2 HOUR TURNS AND GAVE Q4 HOUR 300ML HSO FLUSHES TO HELP RESOLVE SERUM NA+ PER DR. BURNS. LANCE CONTINUE TO ASESS.
[2019-03-08 19:45] VITALS: BP 108/61
[2019-03-09 04:42] VITALS: BP 105/59
[2019-03-09 05:21] LABS: HEMATOCRIT 27.4 % (42.0-52.0); HEMOGLOBIN 8.7 gm/dL (14.0-18.0); MCV 81.5 fL (80.0-100.0); RBC 3.36 mil/uL (4.50-6.00)
[2019-03-09 05:36] LABS: ALBUMIN 1.5 g/dL (3.4-5.0); CALCIUM 8.4 mg/dL (8.5-10.1); CREATININE 0.6 mg/dL (0.7-1.3); PHOSPHORUS 3.5 mg/dL (2.5-4.9); POTASSIUM 4.2 mmol/L (3.5-5.1)
--- NOTE | 2019-03-09 06:16 | NUR ---
Pt. nods head for yes/no question. He has been repositioned for comfort. Pt. has limited mobility due to being a quad and contracted. Maintaining O2 sat in the upper 90's to 100% on current vent settings. Suctioned prn. Afebrile. Tolerating tube feeding well with minimal gastric residual. Water flushes given q 4 hrs ( 300 ml ). Oral care q 2hrs and prn. Colostomy care done. Will continue to monitor.
--- NOTE | 2019-03-09 11:44 | NUR ---
ASSUMED CARE OF PT AT 0700. PT HAS BEEN AWAKE AND ALERT, ORIENTATED TO PERSON AND PLACE. PT IS NONVERBAL BUT WILL ANSWER Y/N QUESTIONS WITH NODS ALONG WITH WHISPERING SOME ANSWERS TO QUESTIONS. PT DENIES PAIN. OXYGENATION GOOD WITH VENTILATION AT CURRENT SETTINGS. DRS. CUENCA AND LUKASZ HAVE ROUNDED ON PT AND REPORT IMPROVEMENTS. PT'S WBC COUNT AND SODIUM LEVEL HAVE BOTH IMPROVED. SPOKE WITH ON THE PHONE TO UPDATE. PT TOLERATING TUBE FEED, 100ML RESIDUAL NOTED AT MORNING WATER FLUSH. WILL CONTINUE TO MONITOR. Q2H TURNS PROVIDED FOR COMFORT AND SKIN PROTECTION. PT IS SLOWLY PROGRESSING TOWARD POC GOALS. WILL CONTINUE TO MONITOR AND ASSESS.
[2019-03-09 15:14] VITALS: BP 121/56
--- NOTE | 2019-03-09 15:31 | NUR ---
SW reviewed chart and spoke with nursing. Attending physician rounded earlier today. No discharge orders written. SW updated [facility] liaison. SW spoke with pt's via phone to provide update. Pt's confirms plan for pt to return to [facility] when medically stable. SW is following to assist as needed with discharge planning.
--- NOTE | 2019-03-09 18:46 | NUR ---
Pt had 100mL residual at 4pm flush. No other changes to note. Will continue to monitor and assess.
[2019-03-09 19:50] VITALS: BP 112/61
[2019-03-10 04:15] VITALS: BP 111/61
--- NOTE | 2019-03-10 05:16 | NUR ---
Pt. has been repositioned for comfort. Maintaining O2 sat in the upper 90's to 100% on current vent settings. Suctioned prn and oral care done q2 hrs and prn. Afebrile. Tolerating tube feeding well with 300 ml water flushes q 4 hrs. Bed alarm on. Making progress towards care plan goals.
[2019-03-10 06:23] LABS: ALBUMIN 1.6 g/dL (3.4-5.0); CALCIUM 8.2 mg/dL (8.5-10.1); CREATININE 0.6 mg/dL (0.7-1.3); PHOSPHORUS 2.7 mg/dL (2.5-4.9); POTASSIUM 4.3 mmol/L (3.5-5.1)
[2019-03-10 07:28] VITALS: BP 109/70
--- NOTE | 2019-03-10 10:07 | NUR ---
WOUND CARE FOLLOW UP; THE SACRAL AND BUTTOCKS AREAS ARE MUCH IMPROVED. THE PATIENT IS CLEAN AND DRY. THE PATIENTS PRESSURE AREAS ARE BEING OFFLOADED EFFECTIVELY. NO NEW AREAS OF CONCERN. CONTINUE CURRENT PLAN. DISCUSSED WITH ZEENAT
--- NOTE | 2019-03-10 13:32 | NUR ---
Nutrition: Na now WNL. Fluid provisions with IVF, water flushes, free water from tube feeds meet 195% of needs. May consider D/C of IVFs.
--- NOTE | 2019-03-10 14:06 | NUR ---
ASSUMED CARE OF PT AT 0700. PT'S VS STABLE. PT REMAINS NSR ON TELE. 02 SATURATIONS GOOD. PT DENIES PAIN. Q2H TURNS PROVIDED FOR COMFORT AND SKIN PROTECTION. ORAL CARE ALSO PROVIDED. SPOKE WITH ON PHONE AND WOULD LIKE TO KNOW PLAN FOR DC. LET HER KNOW I WOULD UPDATE SOON I KNOW MORE. PT IS PROGRESSING TOWARD POC GOALS. WILL CONTINUE TO MONITOR AND ASSESS.
--- NOTE | 2019-03-10 14:22 | NUR ---
SW reviewed chart and spoke with nursing and attending physician. Pt is progressing towards goals for discharge. Attending states pt would be ready for discharge back to [facility] tomorrow. SW notified [facility] liaison, who states that they are unable to accept admissions to the SNF over the weekend, due to not being able to order meds through their pharmacy over the weekend. SW updated attending physician. Discharge back to [facility] is anticipated for Wednesday. BERYL spoke with pt's via phone to provide update and notify of anticipated discharge. Pt's is aware and agreeable with plan. SW is following to assist as needed with discharge planning.
[2019-03-10 15:49] VITALS: BP 106/62
--- NOTE | 2019-03-10 16:11 | NUR ---
discharge anticipated for wednesday to skilled unit. [facility] to transport [facility]. [facility] pcs form completed and placed on the front of patients chart. following to assist with discharge needs.
[2019-03-10 19:15] VITALS: BP 116/60
[2019-03-11 03:25] VITALS: BP 107/69
--- NOTE | 2019-03-11 04:28 | NUR ---
Patient has progressed towards outcome goals. Oxygenation optimal with current vent setting. Tolerating tube feedings. Ostomy intact and draining well. Vital signs and rhythm stable.
[2019-03-11 07:17] VITALS: BP 111/58
[2019-03-11 16:14] VITALS: BP 121/69
[2019-03-11 19:24] VITALS: BP 112/57
--- NOTE | 2019-03-11 20:02 | NUR ---
PT IS NPO AND ON TUBE FEEDING JEVITY 1.5 @ 50/ML HR...HIS RESIDUALS WERE 20,70 AND 30...WATER FLUSHES 300 ML Q4H...
--- NOTE | 2019-03-12 04:36 | NUR ---
Patient progressed towards outcome goals. Vital signs and rhythm stable. Vent settings tube feeding at baseline. Minimal tracheal secretions.
[2019-03-12 05:50] VITALS: BP 99/59
[2019-03-12 07:32] VITALS: BP 113/58
--- NOTE | 2019-03-12 09:48 | NUR ---
VASCULAR ACCESS NURSE ROUNDING. IV ANTIBIOTICS WERE CHANGED TO PEG. THE PATIENT CONTINUES ON A CONTINOUS D5 INFUSION. HE IS HAS SEVERE CONTRATURES OF THE UPPER EXTREMITIES WHICH MAKES PIV ACCESS DIFFICULT. SPOKE TO THE PATIENTS NURSE AND THE PATIENT IS PENDING DISCHARGE POSSIBLY WEDNESDAY. UNKNOWN AT THIS TIME IF HE WILL NEED TO TRANSFER WITH THE LINE. WE WILL FOLLOW UP TOMORROW
[2019-03-12 15:48] VITALS: BP 111/63
--- NOTE | 2019-03-12 19:47 | NUR ---
PT STATUS IS AT BASELINE PER PROGRESS NOTES AND PATIENT WILL MOST LIKELY RETURN TO [facility] TOMORROW..
[2019-03-12 21:00] VITALS: BP 109/58
[2019-03-13 03:39] VITALS: BP 112/62
[2019-03-13 04:03] LABS: ABSOLUTE NEUTROPHILS 13.1 thou/uL (1.4-8.2); BASOPHILS 0.1 % (0.0-2.0); HEMATOCRIT 28.6 % (42.0-52.0); LYMPHOCYTES 4.5 % (24.0-44.0); MCH 25.8 pg (26.0-34.0); MCHC 31.5 g/dL (28.0-37.0); PLATELET COUNT 350 thou/uL (150-400); POLYS 84.4 % (36.0-66.0); RBC 3.49 mil/uL (4.50-6.00); RDW 17.6 % (10.5-14.5); WBC 15.5 thou/uL (4.0-11.0)
--- NOTE | 2019-03-13 06:46 | NUR ---
Patient progressed towards outcome goals. Oxygenation optimal on current vent settings. Minimal secretions. Vital signs and rhythm stable. Tolerating tube feedings. Good urine and ostomy output.
[2019-03-13 07:19] VITALS: BP 119/59
--- NOTE | 2019-03-13 07:30 | HC ---
[facility] [place] [address] [place] [address] CONSULTATION Name: REBECCA MADDOX Room #: 361-P [facility] IN ..#: [id number] Admission: 03/01/19 ������������������ Attend Phys: Rebecca Bee MD Discharge: ������������������ Date of : 57 Report #: [id number] THIS REPORT FOR: //name// CC: Joesph Bee DATE OF SERVICE: 03/01/2019 NEPHROLOGY CONSULTATION: REASON FOR CONSULTATION: Hyperkalemia and acute kidney injury. HISTORY OF PRESENT ILLNESS: This is a 63-year-old male who apparently lives in a chronic ventilator unit at [facility]. He was sent over today due to hypoxemia. Upon arrival in the Emergency Room, he was profoundly hypotensive with pressures registering in the 60/30 range. One is low as 45/30. He was given aggressive volume resuscitation and started on pressors. He continued for several hours in the 70/30 range eventually rising into the 80 systolic range. He was transferred to the intensive care unit and since arriving here, he has actually been on 4 pressors and has a blood pressure running about 100/50. This gentleman comes to us with no records including no history, no medications. Everything I get otherwise is third or clock and watch hands dipper from nursing staff and/or other consultants' notes, which again are not able to be substantiated with actual records at this time. What can be determined though is that this patient is a chronic ventilator patient with a tracheostomy. He is a quadriplegic. He has a PEG tube in place. He has a colostomy in place. Colostomy has been producing a significant amount of liquid stool. He is noncommunicative. Again, I have no medications or other records upon which I can base further history. In the ICU and in the Emergency Department, he has been given so far over 3 liters of IV normal saline. He has been given Zosyn and vancomycin as broad-spectrum antibiotics. He has been placed on Levophed, vasopressin, epinephrine, and Sushant-Synephrine. In total, he is currently getting about 250 mL of IV fluid per hour including saline at 150 and those multiple drips. He was oliguric and also developed some hyperkalemia. His admitting potassium was 5.9. A repeat 8 hours later was at 6.3. He was treated with insulin, dextrose, high dose albuterol, an amp of sodium bicarbonate and a dose of IV Lasix. We have ordered a repeat potassium, but that will not be drawn for a little bit. He has a Philippe catheter in place with a small amount of what appears to be clear yellow urine. PHYSICAL EXAMINATION: GENERAL: Chronically debilitated appearing gentleman. Tracheostomy is in place. He is dramatically contractured in his upper extremities. [address] [address] CONSULTATION Name: REBECCA MADDOX Room #: 361-P ADM IN M.R.#: [id number] Admission: 03/01/19 ������������������ Attend Phys: Rebecca Bee MD Discharge: ������������������ Date of : 57 Report #: [id number] VITAL SIGNS: Blood pressure 107/54 with a heart rate of 106. Oxygen saturation 92%, respiratory rate of 25. HEENT: Shows matted eyes. Oral mucosa is dry. NECK: Tracheostomy in place. CHEST: Shows shallow respirations bilaterally. I hear no rales or wheezes. HEART: Has a regular tachycardia. ABDOMEN: Shows a colostomy in place as well as a PEG tube. Palpation of the abdomen reveals essentially no abdominal musculature at all; you can palpate numerous loops of bowel, none of which appear to be particularly distended. There is no rigidity, but bowel sounds are absent. I am unable to palpate other organomegaly or masses. EXTREMITIES: Show 2+ upper extremity edema bilaterally. Again, the upper extremities are massively contracted. Lower extremities show 2+ thigh edema. Both feet are mottled with absent pulses. I reviewed the chest x-ray. No lew infiltrates. Tracheostomy is appropriately placed. Both lungs are aerated. I reviewed his EKG. It shows a sinus tachycardia, rate of about 110. No peak T waves or widened QRS consistent with hyperkalemia. LABORATORY DATA: On original presentation, sodium 131, potassium 5.9, chloride 97, bicarbonate 25, BUN 62, creatinine 2.8, glucose 92, AST of 491, ALT of 442, total bilirubin 0.5, calcium 8.0, magnesium 2.7, total protein 6.0, albumin 1.9. Lactate 4.1. Troponin 0.15. White count 51.6, hemoglobin 10.3, hematocrit 34.4, platelets 180,000. Differential on the white count 66, 26 bands, 1 lymph, 5 monos, 3 metamyelocytes, 1 myelocyte. Procalcitonin greater than 200. C. diff was negative. Urinalysis, specific gravity of 1.020, pH 7.0, 3+ protein, 3+ blood, 3+ leukocytes with a microscopic exam with 6-15 white cells, 10-20 red cells. Presenting blood gas pH 7.21, pCO2 of 54.6, pO2 of 68.8. A repeat done just now, pH 7.14, pCO2 of 66.4, pO2 of 34.0 on FiO2 of 60.0. His repeat chemistries done at 1720, which is about 8 hours after the admission, initial chemistry is sodium 132, potassium 6.3, chloride 99, bicarbonate 23, BUN 64, creatinine 2.9. ASSESSMENT: 1. Septic shock. He presented with profound hypotension. He has required extensive volume resuscitation to the point where he is developing extensive peripheral edema. He is on 4 pressors at this time. His current blood pressure is improved, although obviously still requiring 4 pressors. Source of his sepsis is suspected to be intra-abdominal based on my exam. Certainly, could be pulmonary in nature as he is oxygenating very poorly. He does not have lew infiltrates on chest x-ray. He also had some component of a urinary source. He needs continued pressors, moderate rate of IV fluids, broad-spectrum antibiotics. A CT scan has been ordered, but has not been done yet and that needs to include chest, abdomen and pelvis. Certainly, with his numerous [facility] [address] [place] [address] CONSULTATION Name: REBECCA MADDOX Room #: 361-P [facility] IN ..#: [id number] Admission: 03/01/19 ������������������ Attend Phys: Rebecca Bee MD Discharge: ������������������ Date of : 57 Report #: [id number] chronic medical problems, various indwelling tubes, and inability to communicate, he could have most any source of potentially. 2. Hyperkalemia. Treated a few hours ago with insulin, dextrose, and albuterol as well as some IV Lasix. We will see what repeat numbers show in the near future and make further decisions about treatment. 3. Acute kidney injury. He has been oliguric so far today. Blood pressure is actually doing a bit better and there is a bit of urine in the Philippe. I put him on q. 8 hour IV Lasix. Again, we need imaging of his abdomen and pelvis including his kidneys with a CT scan. 4. Respiratory failure with hypoxemia and respiratory acidosis. Defer to Pulmonary at this point, but it certainly looks like he needs a higher ventilatory rate as well as some additional supplemental oxygen. 5. Chronically debilitated patient. It does not look like his baseline is very strong. I am uncertain how well he will be able to respond to all these ongoing critical therapies. PLAN: We will follow along the care of this patient. Please see the orders as well as the additional dictation as noted above. ��������������������������������������������� <ELECTRONICALLY SIGNED> ���������������������������������������� By: Darrel Pope MD ��������������������������������������������� 03/13/19 0730 [id number] Darrel Pope MD /nt
--- NOTE | 2019-03-13 10:14 | NUR ---
Discharge Planning: yasmin sent updates to Isha at [facility]. We are waiting on [facility] authorization. YASMIN notified Isha that updates were sent.
--- NOTE | 2019-03-13 10:15 | NUR ---
DIscharge Planning: Updates sent to Isha/Jasmin, patient to dc today, waiting on orders, [facility] ambulance form is filled out in patient's chart. DP notified Isha of incoming updates. DP to follow up on discharge.
--- NOTE | 2019-03-13 11:37 | NUR ---
ASSUMED CARE OF PT AT 0700. PT CONTINUE TO PROGRESS TOWARD POC/DC GOALS. VS ARE STABLE. GOOD OXYGENATION, O2 SATS IN HIGH 90S. MINIMAL SPUTUM WHEN SUCTIONING. URINE OUTPUT IS STAFFING MGR IN COLOR THAN IN PREVIOUS SHIFTS. Q2H TURNS PROVIDED FOR COMFORT. GOOD OUTPUT OF SALAZAR AND OSTOMY. ANTICIPATING DC BACK TO [facility] TODAY. AWAITING ORDERS. WILL CONTINUE TO MONITOR AND ASSESS.
[2019-03-13] MEDS ORDERED: BACTRIM DS TAB1 EACH PO (12:28)
[2019-03-13] MEDS ORDERED: PACERONE 200 M200 M1 PO ×2 (12:29)
[2019-03-13] MEDS ORDERED: IPRAT-ALBUT 0.5-3 ML INH (12:29)
[2019-03-13] MEDS ORDERED: CARDIZEM60 MG PER TUBE (12:30)
[2019-03-13] MEDS ORDERED: PEPCID20 MG PER TUBE (12:30)
[2019-03-13 12:44] VITALS: BP 119/59
--- NOTE | 2019-03-13 12:48 | NUR ---
DISCHARGE NOTE: SW reviewed chart and spoke with nursing. Pt is medically stable for discharge back to [facility] today. Chart copy ordered. meeting/event planner to fax discharge orders/summary to [facility] and will coordinate ambulance transportation and notified pt's . SW notified [facility] liaison. SW is available to assist should needs arise.
--- NOTE | 2019-03-13 13:23 | NUR ---
Discharge Planning: patient has dc orders. Patient to dc today and go to [facility]. Discharge orders faxed to facility and nurse on unit notified. DC papers put in chart copy and ambulance form is attached on front of chart copy and also a copy is inside patient's chart. DP called patient's and told her [facility] will pick her up today at about 3:15pm to go to [facility].
--- NOTE | 2019-03-13 15:12 | NUR ---
PT DC'D BACK TO [facility] AT 1505. REPORT PHONED TO CARMELA AT [facility]. CHART COPY AND INSTRUCTIONS SENT VIA EMS. TELE AND CENTRAL LINE DC'D. BELONGINGS GATHERED AND SENT WITH PT PAPERWORK. TRANSPORTED VIA [facility].
--- NOTE | 2019-03-14 09:30 | D ---
[facility] [place] [address] DISCHARGE SUMMARY Name: REBECCA MADDOX Room #: 361-P [facility]..#: [id number] Admission: 03/01/19 ������������������ Attend Phys: Rebecca Bee MD Discharge: 03/13/19 ������������������ Date of : 57 Report #: [id number] THIS REPORT FOR: //name// CC: Joesph Bee FINAL DIAGNOSES: 1. Sepsis. 2. Lactic acidosis. 3. Acute on chronic respiratory failure with hypoxia. 4. Fever. 5. Quadriplegia. 6. Tracheostomy placed. 7. Ventilator dependent. 8. Increased ileostomy output. 9. Acute kidney injury. 10. Shock liver. 11. Urinary tract infection. 12. Mild hydronephrosis. 13. Bilateral renal stones. 14. Atrial fibrillation with rapid ventricular response. HOSPITAL COURSE: The patient was admitted from his long-term care ventilator unit and diagnosed with sepsis. He was treated with broad-spectrum antibiotics and eventually urinary source was identified for his infection. CT and ultrasound revealed mild bilateral hydronephrosis with small kidney stones, but no obstructing lesion. There was some thickening of his bladder as well. Currently, there is no Urology Services available at the hospital and this was not therefore evaluated due to lack of Specialty Care. However, given his overall poor circumstances and chronic life support requirement, at this time our recommendation was medical management with antibiotics. He was seen by multiple consultants with supportive measures. He slowly improved. He also had a complication of rapid atrial fibrillation and medicine was added. I spoke to his several times on the phone. She agreed with do not resuscitate status, but wanted full medical treatment with IV antibiotics accordingly during his stay. PHYSICAL EXAMINATION: GENERAL: On the day of discharge, he was awake and alert. VITAL SIGNS: Stable. LUNGS: Clear. HEART: Regular. ABDOMEN: Soft, normoactive bowel sounds. His ileostomy output is decreased. EXTREMITIES: No edema. DISPOSITION: He will return to [facility] Ventilator Unit under the care of Dr. Bartolo Holguin. Ventilator settings at 40% oxygen. Tube feeding 50 mL [facility] [employer] [place] [address] DISCHARGE SUMMARY Name: REBECCA MADDOX Room #: 361-P [facility] IN M..#: [id number] Admission: 03/01/19 ������������������ Attend Phys: Rebecca Bee MD Discharge: 03/13/19 ������������������ Date of : 57 Report #: [id number] an hour, 300 mL water flush 4 times a day. Follow up lab data in 3 days, 6 more days of Bactrim and I have ordered and signed his other remaining discharge med list. ��������������������������������������������� <ELECTRONICALLY SIGNED> ���������������������������������������� By: Rebecca Bee MD ��������������������������������������������� 03/14/19 0930 [id number] [id number] Rebecca Bee MD /nt
== END 2019-03-13 15:05 | DRG 870 ==
LOC: ER 08:59 → EROBS 10:52 → ICU 10:52 → 3W 03-07 18:08
PROVIDERS: Emergency Medicine; Hospitalist; Internal Medicine Infectious Disease; Internal Medicine Nephrology; Internal Medicine Pulmonary Disease; Specialist; ADMIT Internal Medicine Geriatric Medicine
PROC: 5A1955Z Respiratory Ventilation, Greater than 96 Consecutive Hours (ICD-10-PCS; principal; 2019-03-01)
DX: A41.9 Sepsis, unspecified organism (principal); R65.21 Severe sepsis with septic shock; J96.21 Acute and chronic respiratory failure with hypoxia; J96.22 Acute and chronic respiratory failure with hypercapnia; R53.2 Functional quadriplegia; K72.00 Acute and subacute hepatic failure without coma; E43 Unspecified severe protein-calorie malnutrition; D65 Disseminated intravascular coagulation [defibrination syndrome]; N17.9 Acute kidney failure, unspecified; J98.11 Atelectasis; Z99.11 Dependence on respirator [ventilator] status; E87.1 Hypo-osmolality and hyponatremia; N13.6 Pyonephrosis; G93.40 Encephalopathy, unspecified; I48.92 Unspecified atrial flutter; E87.0 Hyperosmolality and hypernatremia; Z66 Do not resuscitate; L89.159 Pressure ulcer of sacral region, unspecified stage; D63.8 Anemia in other chronic diseases classified elsewhere; I48.0 Paroxysmal atrial fibrillation; B96.20 Unspecified Escherichia coli [E. coli] as the cause of diseases classified elsewhere; R23.0 Cyanosis; E87.6 Hypokalemia; E87.5 Hyperkalemia; G35 Multiple sclerosis; Z91.048 Other nonmedicinal substance allergy status; Z79.899 Other long term (current) drug therapy; Z93.0 Tracheostomy status; Z68.32 Body mass index [BMI] 32.0-32.9, adult; Z79.01 Long term (current) use of anticoagulants; Z93.3 Colostomy status
CPT/HCPCS: 10078; 10779; 10879